=== PATIENT | male | born 1995 | race Two or more races ===

== ENCOUNTER 2017-12-16 16:34 | Emergency (ER) | payer MEDICAID, OTHER, SELFPAY ==
[~2017-12-16] VITALS: Ht 170.2 cm; Wt 70.1 kg
[2017-12-16 17:45] VITALS: BP 139/82
== END 2017-12-16 17:47 | disposition home or self-care (01) ==
LOC: ED 17:30
DX: F42.8 Other obsessive-compulsive disorder (principal)
CPT/HCPCS: 99284